=== PATIENT | male | born 1955 | race Caucasian/White ===

== ENCOUNTER 2017-02-23 10:40 | Outpatient (CLI) | payer MEDICARE ==
[2017-02-23 13:24] LABS: BASOPHILS # (AUTO) 0.1 10^3/uL (0.0-0.1); BASOPHILS % (AUTO) 0.8 %; EOSINOPHILS # (AUTO) 0.2 10^3/uL (0.0-0.7); EOSINOPHILS % (AUTO) 2.2 %; HCT - HEMATOCRIT 33.6 % (42.0-52.0); HGB - HEMOGLOBIN 11.6 g/dL (14.0-18.0); LYMPHOCYTES # (AUTO) 1.9 10^3/uL (1.5-3.5); LYMPHOCYTES % (AUTO) 22.1 %; MEAN CORPUSCULAR HGB CONC 34.4 g/dL (32.0-36.0); MEAN CORPUSCULAR VOLUME 98.8 fL (80.0-94.0); MEAN PLATELET VOLUME 8.4 fL (7.4-11.4); MONOCYTES # (AUTO) 1.2 10^3/uL (0.0-1.0); MONOCYTES % (AUTO) 13.8 %; NEUTROPHILS # (AUTO) 5.2 10^3/uL (1.5-6.6); NEUTROPHILS % (AUTO) 61.1 %; RED CELL DISTRIBUTION WIDTH 12.9 % (12.0-15.0); UNCORRECTED WHITE BLOOD COUNT 8.4 x10^3/uL; WHITE BLOOD COUNT 8.4 x10^3/uL (4.8-10.8)
[2017-02-23 13:31] LABS: ALBUMIN/GLOBULIN RATIO 1.3 (1.0-2.2); BILIRUBIN,TOTAL 0.5 mg/dL (0.2-1.0); BUN - BLOOD UREA NITROGEN 19 mg/dL (6-20); CALCIUM 9.6 mg/dL (8.5-10.3); CARBON DIOXIDE - CO2 28 mmol/L (21-32); CHLORIDE 101 mmol/L (101-111); CHOL/HDL RATIO 7.3 (<5.0); CHOLESTEROL 270 mg/dL; CREATININE 1.6 mg/dL (0.6-1.2); GFR - MDRD 44 (>89); GLUCOSE 104 mg/dL (70-100); HDL CHOLESTEROL 37 mg/dL; LDL/HDL RATIO 4.9 (<3.6); POTASSIUM 4.8 mmol/L (3.5-5.0); SODIUM 137 mmol/L (135-145); TOTAL PROTEIN 7.8 g/dL (6.7-8.2); TRIGLYCERIDES 264 mg/dL; VLDL CHOLESTEROL 53 mg/dL
== END 2017-02-23 10:41 | disposition home or self-care (01) ==
LOC: LAB.N 10:40
PROVIDERS: ATTEND Nurse Practitioner Gerontology
DX: D75.89 Other specified diseases of blood and blood-forming organs (principal); E78.5 Hyperlipidemia, unspecified; Z85.72 Personal history of non-Hodgkin lymphomas
CPT/HCPCS: 36415; 80053; 80061; 85025

== ENCOUNTER 2017-02-23 13:45 | Outpatient (CLI) | payer MEDICARE ==
--- NOTE | 2017-02-23 14:24 | XRAY Report ---
TWO-VIEW RIGHT SHOULDER: 02/23/2017 CLINICAL INDICATION: Pain. FINDINGS: Internal and external rotational views and a scapular Y view of the right shoulder demonst rate degenerative changes of the acromioclavicular and glenohumeral joints. There is no evidence of acute fracture or dislocation. No radiopaque foreign body is seen in the soft tissues. IMPRESSION: OSTEOARTHRITIS. :9 JOB #: [id number] EXT JOB #:[id number]
== END 2017-02-23 13:46 | disposition home or self-care (01) ==
LOC: DI.N 13:45
PROVIDERS: ATTEND Nurse Practitioner Gerontology
DX: M19.011 Primary osteoarthritis, right shoulder (principal); D75.89 Other specified diseases of blood and blood-forming organs; E78.5 Hyperlipidemia, unspecified; Z85.72 Personal history of non-Hodgkin lymphomas
CPT/HCPCS: 36415; 80053; 80061; 85025

== ENCOUNTER 2017-03-06 13:36 | Outpatient (CLI) | payer MEDICARE ==
--- NOTE | 2017-03-06 17:00 | MRI Report ---
EXAM: RIGHT SHOULDER MRI WITHOUT CONTRAST EXAM DATE: 03/06/2017 02:35 p.m. CLINICAL HISTORY: Right shoulder pain after a fall 4 months ago. This has not resolved with physical therapy. Decreased range of motion and pain radiating down the right arm. History of mantle cell lymp chaka, in remission. COMPARISON: 02/23/2017 radiograph. TECHNIQUE: Multiplanar, multisequence T1-weighted and fluid-sensitive sequences of the shoulder witho ut contrast. Other: None. FINDINGS: Acromioclavicular Region: The acromion is type II. Moderate acromioclavicular osteoarthropathy is ankit dent by bony hypertrophy and periarticular cyst formation. The coracoacromial and coracoclavicular li gaments are intact. A mild amount of fluid is in the subacromial/subdeltoid bursa. Glenohumeral Region: No subluxation. No effusion or loose bodies. There is mild surface irregularity in the glenohumeral articular cartilage. The glenohumeral ligaments and joint capsule are unremarkabl e. Bone Marrow: The patient has marrow edema in the lesser tuberosity. No fractures. Labrum: The labrum is unremarkable on this nonarthrographic study. Musculature/Rotator Cuff: The subscapularis tendon is unremarkable. The supraspinatus tendon has a pa rtial-thickness, joint-sided tear that is 3.2 cm in length, 2.2 cm in width, and up to 75% in thickne ss (series 601, image 10). The infraspinatus and teres minor tendons are intact. No edema or fatty at rophy. Biceps Tendon: Fluid in the biceps tendon sheath is consistent with tenosynovitis. The tendon itself is intact. Other: The subcutaneous tissues are unremarkable. IMPRESSION: 1. Moderate acromioclavicular osteoarthropathy. 2. Mild subacromial/subdeltoid bursitis. 3. Partial supraspinatus tendon tear. 4. Tenosynovitis of the biceps tendon sheath. [facility] MUSCULOSKELETAL RADIOLOGY SECTION Referring Provider Line: [phone] SITE ID: [id number]
== END 2017-03-06 13:37 | disposition home or self-care (01) ==
LOC: DI 13:36
PROVIDERS: ATTEND Nurse Practitioner Gerontology
DX: M25.511 Pain in right shoulder (principal); M19.011 Primary osteoarthritis, right shoulder; M75.51 Bursitis of right shoulder; S46.811A Strain of other muscles, fascia and tendons at shoulder and upper arm level, right arm, initial encounter; M65.811 Other synovitis and tenosynovitis, right shoulder; Z91.81 History of falling